=== PATIENT | male | born 1980 | race African-American/Black ===

== ENCOUNTER 2019-02-15 14:18 | Emergency (ER) | payer OTHER ==
[2019-02-15 14:24] VITALS: BP 145/80; PULSE 100; TEMP 98.5; BMI 27.3
--- NOTE | 2019-02-15 15:12 | PDOC ---
History of Present Illness - General Chief Complaint: Cold Symptoms Stated Complaint: COLD SYMPTOMS Time Seen by Provider: 02/15/19 14:41 History Source: Patient - History of Present Illness Timing/Duration: reports: other Associated Symptoms: reports: cough Past History - Past Medical History Allergies/Adverse Reactions: Allergies Allergy/AdvReac Type Severity Reaction Status Date / Time No Known Allergies Allergy Verified 02/15/19 14:24 Home Medications: Ambulatory Orders Azithromycin [Zithromax -] 250 mg PO UTDICT #6 tab 03/13/17 Albuterol Sulfate Inhaler - [Ventolin HFA Inhaler -] 1 - 2 inh PO Q4H #1 inhaler 02/15/19 Azithromycin 250 mg PO ASDIR #6 tablet 02/15/19 COPD: No HTN: Yes - Immunization History Immunization Up to Date: Yes - Psycho Social/Smoking Cessation Hx Smoking History: Never smoked Have you smoked in the past 12 months: Yes Number of Cigarettes Smoked Daily: 10 Information on smoking cessation initiated: No Hx Alcohol Use: No Drug/Substance Use Hx: No Substance Use Type: None, Marijuana Review of Systems - Review of Systems Constitutional: No: Chills, Fever Respiratory: Yes: Cough. No: Shortness of Breath, Wheezing, Hemoptysis *Physical Exam - Vital Signs Last Vital Signs Temp Pulse Resp BP Pulse Ox 98.5 F 100 H 19 145/80 99 02/15/19 14:22 02/15/19 14:22 02/15/19 14:22 02/15/19 14:22 02/15/19 14:22 - Physical Exam General Appearance: Yes: Appropriately Dressed. No: Apparent Distress HEENT: positive: Normal Voice Neck: positive: Supple. negative: Lymphadenopathy (R), Lymphadenopathy (L) Respiratory/Chest: positive: Lungs Clear, Normal Breath Sounds. negative: Respiratory Distress, Wheezing Cardiovascular: positive: Regular Rate, S1, S2 ED Treatment Course - RADIOLOGY Radiology Studies Ordered: Category Date Time Status CHEST PA & LAT [RAD] Stat Radiology 02/15/19 15:00 Ordered Medical Decision Making - Medical Decision Making 02/15/19 15:04 38 yo M, ~20 pack year hx, here with productive cough [id number], now with chest pain only when he coughs. No hemoptysis, wheezing ,shortness of breath or fever. Denies history of pneumonia see exam Cough in a smoker Stable w/ clear lungs -CXR -likely dc w/ zpack given tob use 02/15/19 15:30 CXR showed no obvious infiltrate. Dc w/ abx, alb pump, smoking cessation, PMD f/ u Discharge - Discharge Information Problems reviewed: Yes Clinical Impression/Diagnosis: Cough Condition: Good Disposition: HOME - Additional Discharge Information Prescriptions: Albuterol Sulfate Inhaler - [Ventolin HFA Inhaler -] 1 - 2 inh PO Q4H #1 inhaler Azithromycin 250 mg PO ASDIR #6 tablet - Follow up/Referral - Patient Discharge Instructions Patient Printed Discharge Instructions: DI for Cough -- Adult, Serious Ways to Stop Smoking Additional Instructions: Your CXR did not show any obvious infection but you were started on antibiotics given your significant smoking history. Strongly consider stop smoking to prevent complications as discussed in length today Return to ER for worsening of symptoms, otherwise follow-up with your PMD - Post Discharge Activity Work/Back to School Note: Back to Work
== END 2019-02-15 15:37 | disposition home or self-care (01) ==
LOC: JERFT 14:18
DX: R05 Cough (principal); I10 Essential (primary) hypertension; F17.210 Nicotine dependence, cigarettes, uncomplicated
CPT/HCPCS: 71046-TC-FY; 99282-25